=== PATIENT | male | born 1975 | race Caucasian/White ===

== ENCOUNTER 2017-02-26 10:15 | Emergency (ER) | payer MEDICAID ==
[~2017-02-26] VITALS: Ht 182.9 cm; Wt 113.4 kg
[2017-02-26 10:18] VITALS: BP 161/107
--- NOTE | 2017-02-26 10:20 | NUR ---
Patient ambulated to bed 4. RN evaluating patient at bedside.
--- NOTE | 2017-02-26 10:22 | NUR ---
41M BIB SELF C/O "WHOLE BODY" PAIN, ACHING, NON-RADIATING, 8/10 X 3 DAYS; PT DENIES TRAUMA OR INJURY AT THIS TIME; PT C/O PRODUCTIVE COUGH X 3 DAYS W/ GREEN SPUTUME; BL LUNG SOUNDS CLEAR, RR EVEN/UNLABORED, BL EQUAL RISE/FALL OF CHEST NOTED AT THIS TIME; PT AA&OX4, PERRLA, STATES NO N/V/D AT THIS TIME; SKIN IS WARM/DRY/INTACT AT THIS TIME; STEADY GAIT; DENIES MEDICAL HX AT THIS TIME; PT RESTING IN BED W/ HOB ELEVATED AND IN LOWEST POSITION; POSITIONED FOR COMFORT; ER MD MADE AWARE OF STATUS. WILL CONTINUE TO MONITOR.
--- NOTE | 2017-02-26 10:26 | NUR ---
Dr. Badillo evaluating patient at bedside.
[2017-02-26] MEDS ORDERED: NACL 0.9% 1,000 ML IV SCH (10:29)
[2017-02-26] MEDS ORDERED: ACETAMINOPHEN EXTRA STRENGTH 500 MG TAB PO ONE (10:30)
[2017-02-26] MEDS ORDERED: FAMOTIDINE 20 MG/2 ML VIAL IVP ONE (10:30)
[2017-02-26] MEDS ORDERED: ONDANSETRON 4 MG/2 ML VIAL IVP ONE (10:30)
--- NOTE | 2017-02-26 10:42 | NUR ---
XRAY AT BEDSIDE.
[2017-02-26 10:51] LABS: BASOPHILS # (AUTO) 0.2 K/uL (0.00-0.22); BASOPHILS % (AUTO) 4.2 % (0.0-2.0); EOSINOPHILS % (AUTO) 0.9 % (0.0-4.0); HEMATOCRIT 44.8 % (36-52); HEMOGLOBIN 14.6 g/dL (12.0-18.0); LYMPHOCYTES # (AUTO) 1.6 K/uL (2.0-11.5); LYMPHOCYTES % (AUTO) 29.7 % (20.5-51.1); MEAN CORPUSCULAR HEMOGLOBIN 29 pg (27-31); MEAN CORPUSCULAR HGB CONC 33 g/dL (33-37); MEAN CORPUSCULAR VOLUME 89 fL (80-94); MONOCYTES # (AUTO) 0.5 K/uL (0.8-1.0); MONOCYTES % (AUTO) 8.9 % (1.7-9.3); NEUTROPHILS # (AUTO) 3.2 K/uL (1.8-7.7); NEUTROPHILS % (AUTO) 56.3 % (42.2-75.2); PLATELET COUNT (AUTO) 276 K/uL (140-450); RED BLOOD CELL COUNT(AUTO) 5.06 MIL/uL (4.20-6.10); RED CELL DISTRIBUTION WIDTH 12.6 % (11.6-13.7)
[2017-02-26 11:00] LABS: WHITE BLOOD COUNT (AUTO) 5.5 K/uL (4.8-10.8)
[2017-02-26 11:16] LABS: INR 1.1 (0.8-1.2); PARTIAL THROMBOPLASTIN TIME 34.2 secs (22-35.6); PROTHROMBIN TIME 10.7 secs (10.8-13.4)
[2017-02-26 11:19] LABS: ANION GAP 15.6 (8-16); CALCIUM 8.3 mg/dL (8.5-10.1); CARBON DIOXIDE 24.4 mmol/L (21-32); CREATININE 0.9 mg/dL (0.6-1.3)
[2017-02-26 11:25] LABS: ALBUMIN 3.9 g/dL (3.4-5.0); TOTAL BILIRUBIN 0.6 mg/dL (0.0-1.0); TOTAL PROTEIN, SERUM 7.6 g/dL (6.4-8.2)
--- NOTE | 2017-02-26 11:30 | NUR ---
PT APPEARS TO BE RESTING COMFORTABLY IN BED; RR EVEN/UNLABORED; STATES NO DISTRESS AT THIS TIME; WILL CONTINUE TO MONITOR.
[2017-02-26 12:24] LABS: APPEARANCE,URINE CLEAR (CLEAR); BILIRUBIN,URINE NEGATIVE (NEGATIVE); BLOOD, URINE NEGATIVE (NEGATIVE); COLOR,URINE YELLOW (YELLOW); LEUKOCYTE ESTERASE ,URINE NEGATIVE (NEGATIVE); NITRITE, URINE NEGATIVE (NEGATIVE); PROTEIN,URINE NEGATIVE (NEGATIVE); UGLUCOSE NEGATIVE (NEGATIVE)
--- NOTE | 2017-02-26 12:35 | NUR ---
IV removed, catheter intact and site benign. Applied folded 4x4 gauze and tape to stop bleeding. PT TOLERATED PROCEDURE WELL.
--- NOTE | 2017-02-26 12:36 | NUR ---
Patient discharged with v/s stable. Written and verbal after care instructions given and explained. Patient alert, oriented and verbalized understanding of instructions. Ambulatory with steady gait. All questions addressed prior to discharge. ID band removed. Patient advised to follow up with PMD. Rx of NAPROSYN 500MG TAB & TAMIFLU 75MG given. Patient educated on indication of medication including possible reaction and side effects. Opportunity to ask questions provided and answered.
[2017-02-26 12:39] VITALS: BP 132/65
== END 2017-02-26 12:36 | disposition home or self-care (01) ==
LOC: MED 10:15
DX: J11.1 Influenza due to unidentified influenza virus with other respiratory manifestations (principal)
CPT/HCPCS: 36415; 71010; 80053; 81003; 82150; 82553; 83690; 83880; 84484; 85025; 85610; 85730; 87804; 93005; 96361; 96374; 96375; 99285; J2405; J3490; J7030; Q0092; 81025

== ENCOUNTER 2018-01-14 09:58 | Emergency (ER) | payer MEDICAID ==
[~2018-01-14] VITALS: Ht 177.8 cm; Wt 115.2 kg
[2018-01-14 10:06] VITALS: BP 141/93
--- NOTE | 2018-01-14 10:09 | NUR ---
Patient ambulated to bed 8. RN evaluating patient at bedside.
--- NOTE | 2018-01-14 10:10 | NUR ---
PATIENT PRESENTS TO ED WITH C/O right 3rd digit pain after slamming hand in car door yesterday. hx DM . PATIENT STATES PAIN OF 10/10 AT THIS TIME; VSS; ER MD MADE AWARE OF PT STATUS.
--- NOTE | 2018-01-14 10:12 | NUR ---
Patient being evaluated by physician at bedside.
[2018-01-14] MEDS ORDERED: HYDROcodone/APAP 10/325 MG 1 TAB TAB PO ONE (10:15)
--- NOTE | 2018-01-14 10:40 | NUR ---
manufacturing production technician at bedside.
[2018-01-14] MEDS ORDERED: LIDOCAINE 1% 500 MG/50 ML VIAL INJ SCH (11:40)
[2018-01-14] MEDS ORDERED: LIDOCAINE MPF 1% - **ER/OR** 10 ML ONE (12:27)
--- NOTE | 2018-01-14 12:28 | NUR ---
Dr. Trejo reducing fracture at bedside.
[2018-01-14 13:05] VITALS: BP 138/82
== END 2018-01-14 13:05 | disposition home or self-care (01) ==
LOC: MED 09:58
DX: S62.612A Displaced fracture of proximal phalanx of right middle finger, initial encounter for closed fracture (principal); E11.9 Type 2 diabetes mellitus without complications; W23.0XXA Caught, crushed, jammed, or pinched between moving objects, initial encounter; Y93.89 Activity, other specified; Y92.89 Other specified places as the place of occurrence of the external cause; Y99.8 Other external cause status
CPT/HCPCS: 26725; 73130; 99284; J2001